=== PATIENT | male | born 1955 | race Caucasian/White ===

== ENCOUNTER → 2017-09-06 | Outpatient (CLI) | payer OTHER ==
--- NOTE | 2017-09-06 09:58 | Diagnostic Imaging Report ---
PROCEDURE:TESTICULAR DOPPLER ULTRASOUND COMPARISON:None. INDICATIONS:Testicular Pain TECHNIQUE: Mcgee-scale and color doppler images of the testicles and scrotal contents were obtained. Duplex imaging with spectral waveform analysis was performed of the testicular arteries and veins. FINDINGS: See below. CONCLUSION: Please see the dictation of the testicular ultrasound for full clinical details. Dictated by: Carlos Pritchard M.D. on 09/06/2017 at 10:00 Electronically approved by: Carlos Pritchard M.D. on 09/06/2017 at 10:00
--- NOTE | 2017-09-06 10:14 | Diagnostic Imaging Report ---
PROCEDURE:TESTICULAR ULTRASOUND COMPARISON:Testicular ultrasound 02/08/2015. INDICATIONS:Testicular Pain TECHNIQUE: Mcgee-scale and color doppler images of the testicles and scrotal contents were obtained. Duplex imaging with spectral waveform analysis was performed of the testicular arteries and veins. FINDINGS: RIGHT SCROTUM: Testicle: 5.1 x 2.5 x 3.7 cm. No focal mass. Support 7 x 0.4 x 0.5 cm hypoechoic region in the right scrotum, likely representing a rete teste. Epididymal head: 1.3 x 0.7 x 1.3 cm. No focal mass. Hydrocele: Small. Varicocele: Present. LEFT SCROTUM: Testicle: 4.5 x 2.8 x 3.6 cm. No focal mass. Epididymal head: 1.3 x 1.2 x 1.1 cm. No focal mass. Hydrocele: Moderate Varicocele: Present. Bilateral small epididymal cysts are present. Left inguinal hernia is present with bowel visualized within the hernia sac. Focal well-circumscribed 6.0 x 2.4 x 6.1 cm anechoic region is present in the left inguinal hernia sac, likely representing fluid in the hernia sac. No ascites was visualized and a focused four quadrant abdominal evaluation. Normal blood flow is noted to the testicles bilaterally. CONCLUSION: No acute sonographic abnormality. Left inguinal hernia with bowel within the hernia sac. Small bilateral epididymal cysts. Bilateral hydroceles, left greater than right. Bilateral varicoceles. Dictated by: Carlos Pritchard M.D. on 09/06/2017 at 10:16 Electronically approved by: Carlos Pritchard M.D. on 09/06/2017 at 10:16
== END ==
LOC: US 08:20
PROVIDERS: ATTEND Family Medicine
DX: N50.819 Testicular pain, unspecified (principal)
CPT/HCPCS: 76870; 93976

== ENCOUNTER → 2018-05-13 | Outpatient (CLI) | payer OTHER ==
--- NOTE | 2018-05-13 10:08 | Diagnostic Imaging Report ---
Exam: Left shoulder 2 views History: Shoulder pain Comparison: None. Findings: No acute, displaced fracture or dislocation. Humeral head projects appropriately adjacent to the glenoid. The glenohumeral joint is well-maintained. There is moderate narrowing and marginal osteophytosis of the acromioclavicular joint. Soft tissues unremarkable. Partially visualized left hemithorax is well aerated. Impression: Moderate acromioclavicular degenerative joint disease. No acute osseous abnormality. Signed by: Dr. Bolivar Larose M.D. on 05/13/2018 10:05 AM
== END ==
LOC: RAD 09:19
PROVIDERS: ATTEND Family Medicine
DX: M25.512 Pain in left shoulder (principal)

== ENCOUNTER → 2018-05-21 | Outpatient (CLI) | payer OTHER ==
--- NOTE | 2018-05-21 10:00 | Diagnostic Imaging Report ---
TECHNIQUE: Magnetic resonance imaging of the LEFT SHOULDER was performed WITHOUT injected contrast. COMPARISON: May 13, 2017 HISTORY: Left shoulder pain FINDINGS: MUSCLES AND TENDONS: Rotator Cuff: Tendons: Small interstitial tear of the rotator cuff at the anterior supraspinatus insertion series 3 image 11 and series 2 image 14. No full-thickness tear or retraction. Muscles: No focal muscle atrophy. Biceps Tendon: The long head of the biceps tendon is intact and within the intertubercular groove. GLENOHUMERAL JOINT: Glenoid Labrum: Superior labral tearing. Articular Cartilage: No focal defect. AC JOINT AND ACROMION: Moderate hypertrophic degenerative changes of the acromioclavicular joint. Acromion is downsloping. BONE: No focal or infiltrative bone marrow replacing abnormality. No acute fracture. SOFT TISSUES: Otherwise, the soft tissues appear unremarkable. IMPRESSION: Supraspinatus small interstitial tear at the anterior humeral insertion. No full-thickness tear, retraction, or atrophy. Superior labral tearing. Moderate acromioclavicular arthrosis and laterally downsloping acromion. Signed by: Dr. Austen Stewart M.D. on 05/21/2018 9:57 AM
== END ==
LOC: MRI 08:47
PROVIDERS: ATTEND Family Medicine
DX: M25.512 Pain in left shoulder (principal)

== ENCOUNTER → 2018-05-28 | Day surgery (SDC) | payer OTHER ==
[~2018-05-28] MED LIST: ADVAIR 250-501 EACH INH; ATORVASTATIN CA20 MG PO; BENICAR20 MG PO; BENZONATATE100 MG PO; CLINDAMYCIN PHOS 900MG/ 50ML 50 ML IV ONE; DEXAMETHASONE SOD PHOS INJ 4 MG/ML VIAL ONE; DEXTROSE 5% IV ONE; DILTIAZEM HCL60 MG PO; EPINEPHRINE HCL 1:1000 1ML 1 MG/ML AMP ONE; FENTANYL CITRATE/PF 100MCG/2 ML INJ ONE; KETAMINE HCL INJ 50 MG/ML 10 ML VIAL ONE; LIDOCAINE 2%/ EPINEPHRINE 20ML MDV ONE; LIDOCAINE HCL 2% LOCAL INJ 5 ML SDV VIAL INJ ONE; METOCLOPRAMIDE HCL 10 MG/2ML VIAL ONE; MIDAZOLAM HCL 2 MG/2 ML VIAL ONE; MONTELUKAST SOD10 MG PO; ONDANSETRON HCL INJ 2MG/ML 2ML 2 MG/ML VIAL ONE; PROPOFOL IV EMULSION 10 MG/ML 20 ML VIAL ONE; ROCURONIUM BROMIDE 10 MG/ML 5ML VIAL ONE; ROPIVACAINE 0.5% 5 MG/ML 30 ML SDV ONE; VENTOLIN HFA18 GM INH
--- OUTSIDE RECORDS SUMMARY | 2018-05-28 07:33 | XMS REPORT ---
[facility] Address Unknown Phone Unavailable Care Team Providers Care Materials Scientist Name Role Phone ERICK FLORES Unavailable Unavailable Problems This patient has no known problems. Allergies, Adverse Reactions, Alerts This patient has no known allergies or adverse reactions. Medications This patient has no known medications. Results Test Description Test Time Test Comments Text Results Atomic Results Result Comments MRI SHOULDER LEFT WO 2018-05-21 09:53:00 [place] [id number] [place] [address] Patient Name: DA EMMANUEL MR #: [id number] : 1955 Age/Sex: 62/M Req #: [id number] [facility] Physician: Ordered by: SANDRA MADISON, ERICK South MD Report #: [id number] Location: MRI Room/Bed: Procedure: [id number] MRI/MRI SHOULDER LEFT WO Exam Date: 05/21/18 Exam Time: 924 REPORT STATUS: Signed TECHNIQUE: Magnetic resonance imaging of the LEFT SHOULDER was performed WITHOUT injected contrast. COMPARISON: May 13, 2017 HISTORY: Left shoulder pain FINDINGS: MUSCLES AND TENDONS: Rotator Cuff: Tendons: Small interstitial tear of the rotator cuff at the anterior supraspinatus insertion series 3 image 11 and series 2 image 14. No full-thickness tear or retraction. Muscles: No focal muscle atrophy. Biceps Tendon: The long head of the biceps tendon is intact and within the intertubercular groove. GLENOHUMERAL JOINT: Glenoid Labrum: Superior labral tearing. Articular Cartilage: No focal defect. AC JOINT AND ACROMION: Moderate hypertrophic degenerative changes of the acromioclavicular joint. Acromion is downsloping. BONE: No focal or infiltrative bone marrow replacing abnormality. No acute fracture. SOFT TISSUES: Otherwise, the soft tissues appear unremarkable. IMPRESSION: Supraspinatus small interstitial tear at the anterior humeral insertion. No full-thickness tear, retraction, or atrophy. Superior labral tearing. Moderate acromioclavicular arthrosis and laterally downsloping acromion. Signed by: Dr. Hector Mcpherson M.D. on 05/21/2018 9:57 AM Dictated By: HECTOR MCPHERSON MD 6 Transcribed By: NEMESIO on 05/21/18956 COPY TO: ERICK FLORES SHOULDER LEFT COMPLETE 2018-05-13 10:03:00 [place] [address] Patient Name: DA EMMANUEL MR #: [id number] : 1955 Age/Sex: 62/M Req #: [id number] Adm Physician: Ordered by: ERICK FLORES MD, MD Report #: [id number] Location: [facility] Room/Bed: Procedure: [id number] DX/SHOULDER LEFT COMPLETE Exam Date: 05/13/18 Exam Time: 0950 REPORT STATUS: Signed Exam: Left shoulder 2 views History: Shoulder pain Comparison: None. Findings: No acute, displaced fracture or dislocation. Humeral head projects appropriately adjacent to the glenoid. The glenohumeral joint is well-maintained. There is moderate narrowing and marginal osteophytosis of the acromioclavicular joint. Soft tissues unremarkable. Partially visualized left hemithorax is well aerated. Impression: Moderate acromioclavicular degenerative joint disease. No acute osseous abnormality. Signed by: Dr. Benji Perez M.D. on 05/13/2018 10:05 AM Dictated By: BENJI PEREZ MD 1005 Transcribed By: NEMESIO on 05/13/18 1005 COPY TO: ERICK FLORES TESTICULAR DOPPLER LTD [place] [address] Patient Name: DA EMMANUEL MR #: [id number] : 1955 Age/Sex: 62/M Req #: [id number] Adm Physician: Ordered by: SANDRA MADISON, ERICK South MD Report #: [id number] Location: Room/Bed: Procedure: [id number] US/US TESTICULAR DOPPLER LTD Exam Date: Exam Time: REPORT STATUS: Signed PROCEDURE: TESTICULAR DOPPLER ULTRASOUND COMPARISON: None. INDICATIONS: Testicular Pain TECHNIQUE: Mcgee-scale and color doppler images of the testicles and scrotal contents were obtained. Duplex imaging with spectral waveform analysis was performed of the testicular arteries and veins. FINDINGS: See below. CONCLUSION: Please see the dictation of the testicular ultrasound for full clinical details. Dictated by: Shawn Lobo M.D. on 09/06/2017 at 10:00 Electronically approved by: Shawn Lobo M.D. on 09/06/2017 at 10:00 Dictated By: SHAWN LOBO MD 1000 Transcribed By: ROGERIO on 09/06/17 1000 COPY TO: ERICK FLORES TESTICULAR [place] [address] Patient Name: DA EMMANUEL MR #: [id number] : 1955 Age/Sex: 62/M Req #: [id number] Adm Physician: Ordered by: ERICK FLORES MD, MD Report #: [id number] Location: US Room/Bed: Procedure: [id number] US/US TESTICULAR Exam Date: Exam Time: REPORT STATUS: Signed PROCEDURE: TESTICULAR ULTRASOUND COMPARISON: Testicular ultrasound 02/08/2015. INDICATIONS: Testicular Pain TECHNIQUE: Mcgee-scale and color doppler images of the testicles and scrotal contents were obtained. Duplex imaging with spectral waveform analysis was performed of the testicular arteries and veins. FINDINGS: RIGHT SCROTUM: Testicle: 5.1 x 2.5 x 3.7 cm. No focal mass. Support 7 x 0.4 x 0.5 cm hypoechoic region in the right scrotum, likely representing a rete teste. Epididymal head: 1.3 x 0.7 x 1.3 cm. No focal mass. Hydrocele: Small. Varicocele: Present. LEFT SCROTUM: Testicle: 4.5 x 2.8 x 3.6 cm. No focal mass. Epididymal head: 1.3 x 1.2 x 1.1 cm. No focal mass. Hydrocele: Moderate Varicocele: Present. Bilateral small epididymal cysts are present. Left inguinal hernia is present with bowel visualized within the hernia sac. Focal well-circumscribed 6.0 x 2.4 x 6.1 cm anechoic region is present in the left inguinal hernia sac, likely representing fluid in the hernia sac. No ascites was visualized and a focused four quadrant abdominal evaluation. Normal blood flow is noted to the testicles bilaterally. CONCLUSION: No acute sonographic abnormality. Left inguinal hernia with bowel within the hernia sac. Small bilateral epididymal cysts. Bilateral hydroceles, left greater than right. Bilateral varicoceles. Dictated by: Shawn Lobo M.D. on 09/06/2017 at 10:16 Electronically approved by: Shawn Lobo M.D. on 09/06/2017 at 10:16 Dictated By: SHAWN LOBO MD 1016 Transcribed By: ROGERIO on 09/06/17 1016 COPY TO: ERICK FLORES CHEST 2 VIEWS [place] [address] Patient Name: DA EMMANUEL MR #: [id number] : 1955 Age/Sex: 61/M Req #: [id number] Adm Physician: Ordered by: ERICK FLORES MD, MD Report #: [id number] Location: [facility] Room/Bed: Procedure: [id number] DX/CHEST 2 VIEWS Exam Date: 02/13/17 Exam Time: 1053 REPORT STATUS: Signed PROCEDURE: Frontal and lateral views of the chest. COMPARISON: Chest 2 views 10/19/2015. Chest 2 views 05/14/2011. INDICATIONS: WHEEZING, DYSPNEA FINDINGS: Lines/tubes: None. Lungs: The lungs are well inflated and clear. There is no evidence of pneumonia or pulmonary edema. Left lung base atelectasis. Interval elevation of the left hemidiaphragm. Pleura: There is no pleural effusion or pneumothorax. Heart and mediastinum: The heart and the mediastinum are normal. Bones: No acute bony abnormality. Degenerative changes of the thoracic spine. IMPRESSION: No acute radiographic abnormality. Elevation of the left hemidiaphragm. Dictated by: Shawn Lobo M.D. on 02/13/2017 at 11:35 Electronically approved by: Shawn Lobo M.D. on 02/13/2017 at 11:35 Dictated By: SHAWN LOBO MD 1133 Transcribed By: ROGERIO on 02/13/17 1136 COPY TO: ERICK FLORES
[2018-05-28 14:40] VITALS: BP 129/76
--- NOTE | 2018-05-29 15:34 | Operative Report ---
DATE OF PROCEDURE: May 28, 2018 PREOPERATIVE DIAGNOSES 1. Left shoulder labral tear. 2. Left shoulder acromioclavicular joint arthrosis. POSTOPERATIVE DIAGNOSES 1. Left shoulder labral tear. 2. Left shoulder synovitis. 3. Left shoulder bursitis. 4. Left shoulder partial rotator cuff tear. 5. Left shoulder acromioclavicular joint arthritis. PROCEDURES PERFORMED 1. Left shoulder examination under anesthesia. 2. Left shoulder arthroscopy. 3. Left shoulder arthroscopic debridement of synovitis. 4. Left shoulder arthroscopic biceps tenodesis. 5. Left shoulder arthroscopic subacromial decompression and acromioplasty. 6. Left shoulder arthroscopic debridement of a partial bursal surface rotator cuff tear. 7. Left shoulder arthroscopic distal clavicle resection. CATTLE DIPPER: None. ANESTHESIA: General endotracheal intubation anesthesia. IV FLUIDS: Per the anesthesia record. DESCRIPTION OF PROCEDURE: Mr. Mg was taken to the operating room and placed in the supine position on the operating room table. Following induction of general anesthesia as well as endotracheal intubation, the patient's chair was converted to a beach chair type position. Examination of the left shoulder demonstrated no gross abnormalities. The patient had full passive range of motion of the shoulder joint without evidence of instability. The patient's upper extremity was prepped and draped in the standard surgical fashion. Standard posterolateral and anterior portals were created without difficulty. The scope was placed within the shoulder joint atraumatically. Examination of the glenohumeral articulation demonstrated no significant evidence of glenohumeral arthrosis. There were no loose bodies in the shoulder joint. There was diffuse synovitis in the shoulder. The articular surface rotator cuff was intact. Examination of the biceps anchor demonstrated a superior labral tear with detachment of the biceps anchor. A shaver was placed in the shoulder joint, and the synovitis was debrided. The rotator interval was also debrided. Sutures were shuttled through the rotator interval, capturing the biceps tendon within the shoulder joint. The long head of the biceps was then freed from its attachment to the superior aspect of the labrum. The labral tissue was then debrided. The shoulder was deflated of its sterile normal saline. The scope was placed in the subacromial space, and significant bursal inflammation was encountered. A lateral portal was created from an outside-in technique. A bursectomy was performed. The sutures were identified in the subacromial space and the rotator interval. They were captured and tied over the rotator interval firmly. Examination of the rotator cuff tissue demonstrated a partial tear of the bursal surface of the rotator cuff. A shaver was used to debride this partial tear. There was no evidence of a full-thickness component. The coracoacromial ligament was resected, and an acromioplasty was performed at this time. The anterior portal was then transferred to the subacromial space at the level of the acromioclavicular joint. A shaver was placed through the anterior portal, and a 1-cm section of the distal clavicle was resected in toto. This was confirmed arthroscopically with the scope placed both laterally and anteriorly through the portals. The shoulder was then deflated of its sterile normal saline. The portal sites were closed. Sterile dressings were applied as well as a shoulder immobilizer. The patient was then awakened and taken to the postanesthesia care unit in stable condition. Job#: [id number]
== END | disposition home or self-care (01) ==
LOC: OR 07:31
PROVIDERS: ATTEND Specialist
DX: S43.432A Superior glenoid labrum lesion of left shoulder, initial encounter (principal); M19.012 Primary osteoarthritis, left shoulder; S46.092A Other injury of muscle(s) and tendon(s) of the rotator cuff of left shoulder, initial encounter; J45.909 Unspecified asthma, uncomplicated; M65.812 Other synovitis and tenosynovitis, left shoulder; M75.52 Bursitis of left shoulder; I10 Essential (primary) hypertension; E78.5 Hyperlipidemia, unspecified; W17.89XA Other fall from one level to another, initial encounter; Z88.6 Allergy status to analgesic agent; Z88.0 Allergy status to penicillin; Z01.810 Encounter for preprocedural cardiovascular examination
CPT/HCPCS: 29824; 29826; 29828; 93005; J0171; J1100; J2001 ×2; J2250; J2405; J2704; J2765; J2795; J7070

== ENCOUNTER 2018-09-23 08:00 | Outpatient (RCR) | payer OTHER ==
[~2018-09-23 08:00] MED LIST changes: -CLINDAMYCIN PHOS 900MG/ 50ML 50 ML IV ONE; -DEXAMETHASONE SOD PHOS INJ 4 MG/ML VIAL ONE; -DEXTROSE 5% IV ONE; -EPINEPHRINE HCL 1:1000 1ML 1 MG/ML AMP ONE; -FENTANYL CITRATE/PF 100MCG/2 ML INJ ONE; -KETAMINE HCL INJ 50 MG/ML 10 ML VIAL ONE; -LIDOCAINE 2%/ EPINEPHRINE 20ML MDV ONE; -LIDOCAINE HCL 2% LOCAL INJ 5 ML SDV VIAL INJ ONE; -METOCLOPRAMIDE HCL 10 MG/2ML VIAL ONE; -MIDAZOLAM HCL 2 MG/2 ML VIAL ONE; -ONDANSETRON HCL INJ 2MG/ML 2ML 2 MG/ML VIAL ONE; -PROPOFOL IV EMULSION 10 MG/ML 20 ML VIAL ONE; -ROCURONIUM BROMIDE 10 MG/ML 5ML VIAL ONE; -ROPIVACAINE 0.5% 5 MG/ML 30 ML SDV ONE
== END 2018-09-26 ==
LOC: PT 08:00
PROVIDERS: ATTEND Specialist
DX: M25.512 Pain in left shoulder (principal); M25.612 Stiffness of left shoulder, not elsewhere classified; M62.81 Muscle weakness (generalized)

== ENCOUNTER 2018-10-23 09:00 | Outpatient (RCR) | payer OTHER | END 2018-10-26 | LOC: PT 09:00 | PROVIDERS: ATTEND Specialist | DX: M19.012 Primary osteoarthritis, left shoulder (principal); M25.512 Pain in left shoulder; M25.612 Stiffness of left shoulder, not elsewhere classified; M62.81 Muscle weakness (generalized) ==